=== PATIENT | female | born 1960 | race Caucasian/White ===

== ENCOUNTER 2019-04-14 20:04 | Emergency (ER) | payer OTHER ==
[~2019-04-14] VITALS: Ht 167.6 cm; Wt 61.2 kg
[2019-04-14] MEDS ORDERED: LIDOCAINE 1% VIAL ONE (21:24)
[2019-04-14] MEDS ORDERED: SODIUM CHLORIDE IR ONE (21:26)
--- NOTE | 2019-04-14 21:27 | ER.PDOC ---
General Chief Complaint: Requesting Medical Care Stated Complaint: CUT LEFT INDEX FINGER Time seen by MD: 21:20 Source: patient Exam Limitations: no limitations History of Present Illness Initial Comments was hiking and tripped on a rock landing face forward; her camera cut the left index finger; she has noticed tiny sprays of blood coming from the finger Occurred: just prior to arrival Recent Injury: Yes Context: fall, cut on camera Where: park Severity: moderate 1 - ragged laceration 2 cm Past Medical History Medical History: no pertinent history Social History Alcohol Use: none Drug Use: none Review of Systems Constitutional: no symptoms reported EENTM: no symptoms reported Respiratory: no symptoms reported Cardiovascular: no symptoms reported Gastrointestinal: no symptoms reported Musculoskeletal: see HPI Skin: see HPI Physical Exam General Appearance: alert, mild distress (patient does have a little arteriole sprayer at the distal 1/3 of lac) Vascular: no vascular compromise (brisk cap refill) Respiratory: no resp distress, breath sounds nml CVS: reg rate & rhythm, heart sounds nml Abdomen: non-tender ED LACERATION WOUND REPAIR # of Wounds/Lacerations Presen: 1 Wound Location & Length (Requi: dorsal lateral aspect of left index finger, proximal phalanx Wound Length (cm): 2 Distal NVT: neuro intact, vasc intact Anesthesia type: local Anesthesia: 1% Lidocaine Volume Anesthetic (ccs): 3 Wound's Depth, Shape: linear, irregular Wound Explored: clean Tendon Intact: Yes Wound Debrided: minimal Wound Repaired With: sutures (#2 5.0 vicryl sub Q to stop bleeding; #4 5.0 ethilon external) Suture Size/Type: 5:0, ethilon Suture Style: simple Number of Sutures: 6 Layer Closure?: Yes Number Deep Layer Sutures: 2 Sterile Dressing Applied?: Yes Results/Orders Results/Orders Orders - YAYA MARION DO Lidocaine Hcl (Lidocaine 1% Vial) (04/14/19 21:24) Sodium Chloride Irrig Solution (Sodium C (04/14/19 21:26) Xr Finger Lt (04/14/19 21:38) Vital Signs Date Time Temp Pulse Resp B/P (MAP) Pulse Ox O2 Delivery O2 Flow Rate FiO2 04/14/19 20:51 98.9 102 20 96 EKG/XRAY/CT/US XRAY: hand (no fx seen) Departure Time of Disposition: 21:58 Disposition: 01 HOME, SELF-CARE Impression: Primary Impression: Fall Additional Impression: Laceration of finger Condition: Improved Patient Instructions: Laceration Care, Adult Referrals: PCP,UNKNOWN (PCP) PRIMARY CARE PROVIDER Additional Instructions: Take antibiotics as prescribed until gone. Apply triple antibiotic ointment daily to wound. Keep wound clean and dry. Sutures out 10-14 days. Return to ER if any signs of infection or other concerns. Duration or Time Spent with Pa: 45 min Problem Qualifiers Primary Impression: Fall Encounter type: initial encounter Qualified Codes: W19.XXXA - Unspecified fall, initial encounter Additional Impression: Laceration of finger Encounter type: initial encounter Finger: index finger Damage to nail status: without damage Foreign body presence: without foreign body Laterality: left Qualified Codes: S61.211A - Laceration without foreign body of left index finger without damage to nail, initial encounter YAYA MARION DO Apr 14, 2019 21:27
[2019-04-14] MEDS ORDERED: TRIPLE ANTIBIOTIC OINTMENT TP STA (21:58)
[2019-04-14] MEDS ORDERED: ULTRAM PO STA (22:05)
[2019-04-14] MEDS ORDERED: ZOFRAN ODT ONE (22:07)
[2019-04-14] MEDS ORDERED: ULTRAM ONE (22:08)
[2019-04-14] MEDS ORDERED: KEFLEX PO ONE ×2 (22:08→22:30)
--- NOTE | 2019-04-14 22:08 | DIREP ---
PROCEDURE:XRAY FINGER-LT COMPARISON:None. INDICATIONS:LACERATION FINDINGS: BONES:Normal. JOINTS:Normal. SOFT TISSUES:Normal. OTHER:No additional findings. CONCLUSION: 1. No fracture or dislocation demonstrated. Dictated by: Sergei Stern M.D. on 04/14/2019 at 10:06 PM
[2019-04-14] MEDS ORDERED: TRIPLE ANTIBIOTIC OINTMENT TP ONE (22:22)
[2019-04-14] MEDS ORDERED: ZOFRAN ODT SL PRN (22:30)
[2019-04-14 22:32] VITALS: BP 128/87
== END 2019-04-14 22:33 | disposition home or self-care (01) ==
LOC: ER 20:04
DX: S61.211A Laceration without foreign body of left index finger without damage to nail, initial encounter (principal); W45.8XXA Other foreign body or object entering through skin, initial encounter; Y93.01 Activity, walking, marching and hiking; Y92.89 Other specified places as the place of occurrence of the external cause; Y92.830 Public park as the place of occurrence of the external cause; Y99.8 Other external cause status
CPT/HCPCS: 12031; 73140; 99284; A4217; J2001; Q0162; 99283; 12001